=== PATIENT | male | born 1975 | race Native Hawaiian/Other Pacific Islander ===

== ENCOUNTER 2017-09-28 13:09 | Emergency (ER) | payer SELFPAY ==
[2017-09-28 13:18] VITALS: BP 139/98; PULSE 102; RESP 16; TEMP 97.5; O2SAT 99
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
--- NOTE | 2017-09-28 14:11 | RAD ---
PROCEDURE: Cervical Spine Radiographs. HISTORY: Pain. COMPARISON: None. FINDINGS: BONES: Alignment maintained. No fracture. Dens Intact. DISC SPACES: Normal. SOFT TISSUES: Normal. No prevertebral soft tissue swelling. OTHER FINDINGS: None. IMPRESSION: Normal cervical spine radiographs Concordant results with the preliminary interpretation rendered by the emergency department physician procedure.
== END 2017-09-28 14:43 | disposition left against medical advice (07) ==
LOC: H.ER 13:09
DX: S39.012A Strain of muscle, fascia and tendon of lower back, initial encounter (principal); S16.1XXA Strain of muscle, fascia and tendon at neck level, initial encounter; Y04.0XXA Assault by unarmed brawl or fight, initial encounter; Y92.89 Other specified places as the place of occurrence of the external cause; F17.200 Nicotine dependence, unspecified, uncomplicated